=== PATIENT | female | born 1990 | race African-American/Black ===

== ENCOUNTER 2018-01-30 00:14 | Inpatient (IN) | payer MEDICAID, OTHER ==
[2018-01-30] MEDS ORDERED: Lidocaine 1% 50 ML MDV INJECT PRN (00:26)
[2018-01-30] MEDS ORDERED: Sodium Chloride 0.9% 2.5 ML Syringe FLUSH PRN (00:26)
[2018-01-30] MEDS ORDERED: Water For Irrigation,Sterile 1,000 ML Container IRR PRN (00:26)
[2018-01-30] MEDS ORDERED: Methylergonovine 0.2 MG/1 ML Amp IM PRN (00:26)
[2018-01-30] MEDS ORDERED: Misoprostol 200 MCG Tab PO PRN (00:26)
[2018-01-30] MEDS ORDERED: Nalbuphine 10 MG/1 ML Vial IVPUSH PRN (00:26)
[2018-01-30] MEDS ORDERED: Carboprost Tromethamine 250 MCG/1 ML Amp IM PRN (00:26)
[2018-01-30] MEDS ORDERED: Sodium Chloride 0.9% 10 ML Syringe FLUSH PRN (00:26)
[2018-01-30] MEDS ORDERED: Misoprostol 25 MCG (1/4 of 100 MCG) Tab VAG PRN (00:26)
[2018-01-30] MEDS ORDERED: Terbutaline 1 MG/ML SDV SUBCUT PRN (00:26)
[2018-01-30] MEDS ORDERED: Tranexamic Acid 1,000 MG in Sodium Chloride 0.9% 100 ML IV PRN (00:26)
[2018-01-30] MEDS ORDERED: Lactated Ringers 1,000 ML IV SCH (00:30)
[2018-01-30] MEDS ORDERED: Ampicillin 2 GM in Sodium Chloride 0.9% 100 ML IV ONE (00:30)
[2018-01-30] MEDS ORDERED: Misoprostol 25 MCG (1/4 of 100 MCG) Tab VAG SCH (00:30)
[2018-01-30] MEDS ORDERED: Oxytocin/0.9 % Sodium Chloride 30 UNIT/500 ML BAG IV SCH ×2 (00:30)
[2018-01-30] MEDS: Misoprostol 25 MCG (1/4 of 100 MCG) Tab PO SCH ×2 (01:17→14:04)
[2018-01-30] MEDS ORDERED: NIFEdipine 10 MG Cap PO ONE (01:41)
[2018-01-30] MEDS ORDERED: NIFEdipine 10 MG Cap PO PRN (05:15)
[2018-01-30] MEDS: Ampicillin 1 GM in Sodium Chloride 0.9% 50 ML IV SCH ×3 (05:22→14:05)
--- NOTE | 2018-01-30 07:45 | PCM.LDHP ---
L&D History of Present Illness - General Date of Service: 01/30/18 Admit Problem/Dx: Patient Status Order with Admit Dx/Problem 01/30/18 00:26 Patient Status [ADT] Routine Admission Diagnosis/Problem Admission Diagnosis/Problem 01/30/18 07:41 27yo EDC 02/02/2018 39 4/7wks, IOL for GDMA1, A+, RI, GBS pos. 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: , Spontaneous Social & Family History - Family History OBGYN: Reports: Oncologic: Reports: Brain - Tobacco Use Smoking Status *Q: Never Smoker - Caffeine Use Caffeine Use: Reports: Coffee - Recreational Drug Use Recreational Drug Use: No H&P Review of Systems - Review of Systems: Review Of Systems: See Below General: Reports: No Symptoms HEENT: Reports: No Symptoms Pulmonary: Reports: No Symptoms Cardiovascular: Reports: No Symptoms Gastrointestinal: Reports: No Symptoms Genitourinary: Reports: No Symptoms Musculoskeletal: Reports: No Symptoms Skin: Reports: No Symptoms Psychiatric: Reports: No Symptoms Neurological: Reports: No Symptoms Hematologic/Lymphatic: Reports: No Symptoms Immunologic: Reports: No Symptoms L&D Exam - Exam Exam: See Below - Vital Signs Vital Signs: Last Vital Signs Temp Pulse Resp BP 158/91 H 01/30/18 06:24 Pulse Ox Weight: 96.615 kg - Ballard Score Ballard Score Cervix Position: Midposition Ballard Score Consistency: Medium Ballard Score Effacement: 51-70% Ballard Score Dilation: 1-2 cm Ballard Score 's Station: -3 Ballard Score Total: 5 - Exam General: Alert, Oriented, Cooperative, Mild Distress HEENT: Hearing Intact Lungs: Normal Respiratory Effort GI/Abdominal Exam: Soft, Non-Tender (gravid) Rectal Exam: Deferred Genitourinary: Cervical dilitation Back Exam: Full Range of Motion Extremities: Normal Range of Motion, Non-Tender, No Pedal Edema, Normal Capillary Refill Skin: Warm, Dry, Intact Neurological: Reflexes Equal Bilateral, Normal Speech, Normal Tone Psychiatric: Alert, Normal Affect, Normal Mood - Patient Data Lab Results Last 24 hrs: Laboratory Results - last 24 hr 01/30/18 01/30/18 Range/Units 00:50 00:50 WBC 10.07 (4.0-11.0) K/uL RBC 3.31 L (4.30-5.90) M/uL Hgb 10.9 L (12.0-16.0) g/dL Hct 32.8 L (36.0-46.0) % MCV 99.1 H (80.0-98.0) fL MCH 32.9 H (27.0-32.0) pg MCHC 33.2 (31.0-37.0) g/dL RDW Std Deviation 44.7 (28.0-62.0) fl RDW Coeff of Rossana 13 (11.0-15.0) % Plt Count 214 (150-400) K/uL MPV 10.20 (7.40-12.00) fL Blood Type A POSITIVE Antibody Screen NEGATIVE Result Diagrams: 01/30/18 00:50 - Problem List (1) Supervision of normal IUP (intrauterine ) in multigravida SNOMED Code(s): 364922295, 627043340 ICD Code: Z34.80 - ENCOUNTER FOR SUPRVSN OF NORMAL , UNSP TRIMESTER Status: Acute Priority: High Current Visit: Yes Qualifiers: Trimester: third trimester Qualified Code(s): Z34.83 - Encounter for supervision of other normal , third trimester (2) GDM (gestational diabetes mellitus), class A1 SNOMED Code(s): 27199521 ICD Code: O24.410 - GESTATIONAL DIABETES MELLITUS IN , DIET CONTROLLED Status: Acute Priority: High Current Visit: Yes Problem List Initiated/Reviewed/Updated: Yes Orders Last 24hrs: Active Orders 24 hr Category Date Time Status Patient Status [ADT] Routine ADT 01/30/18 00:26 Active Bedrest Bathroom Privileges [RC] ASDIRECTED Care 01/30/18 00:26 Active Communication Order [RC] ASDIRECTED Care 01/30/18 00:26 Active Communication Order [RC] ASDIRECTED Care 01/30/18 00:26 Active Communication Order [RC] ASDIRECTED Care 01/30/18 00:26 Active Heart Tones [RC] CONTINUOUS Care 01/30/18 00:26 Active Non Stress Test [RC] PER UNIT ROUTINE Care 01/30/18 00:26 Active May Shower [RC] ASDIRECTED Care 01/30/18 00:26 Active Notify Provider [RC] PRN Care 01/30/18 00:26 Active Notify Provider [RC] PRN Care 01/30/18 00:26 Active Notify Provider [RC] PRN Care 01/30/18 00:26 Active Notify Provider [RC] STAT Care 01/30/18 00:26 Active Oxygen Therapy [RC] ASDIRECTED Care 01/30/18 00:26 Active Up ad Alyson [RC] ASDIRECTED Care 01/30/18 00:26 Active Vaginal Exam [RC] PRN Care 01/30/18 00:26 Active Vaginal Exam [RC] PRN Care 01/30/18 00:26 Active Vital Signs [RC] PER UNIT ROUTINE Care 01/30/18 00:26 Active Vital Signs [RC] PER UNIT ROUTINE Care 01/30/18 00:26 Active Regular Diet [DIET] Diet 01/30/18 Breakfast Active Ampicillin 1 gm Med 01/30/18 04:30 Active Sodium Chloride 0.9% [Normal Saline] 50 ml IV Q4H Carboprost Tromethamine [Hemabate DS] Med 01/30/18 00:26 Active 250 mcg IM ASDIRECTED PRN Lactated Ringers [Ringers, Lactated] 1,000 ml Med 01/30/18 00:30 Active IV ASDIRECTED Lidocaine 1% [Xylocaine 1%] Med 01/30/18 00:26 Active 50 ml INJECT .ONCE PRN Methylergonovine [Methergine] Med 01/30/18 00:26 Active 0.2 mg IM ASDIRECTED PRN Misoprostol [Cytotec] Med 01/30/18 00:26 Active 200 mcg PO .ONCE PRN Misoprostol [Cytotec] Med 01/30/18 00:30 Active 25 mcg PO Q4H Misoprostol [Cytotec] Med 01/30/18 00:30 Active 25 mcg VAG .ONCE Misoprostol [Cytotec] Med 01/30/18 00:26 Active 25 mcg VAG Q4H PRN NIFEdipine [Procardia] Med 01/30/18 05:15 Active 30 mg PO BID PRN Nalbuphine [Nubain] Med 01/30/18 00:26 Active 10 mg IVPUSH Q1H PRN Oxytocin/0.9 % Sodium Chloride [Oxytocin 30 Unit/500 ML Med 01/30/18 00:30 Active -NS] 30 unit in 500 ml IV TITRATE Sodium Chloride 0.9% [Saline Flush] Med 01/30/18 00:26 Active 10 ml FLUSH ASDIRECTED PRN Sodium Chloride 0.9% [Saline Flush] Med 01/30/18 00:26 Active 2.5 ml FLUSH ASDIRECTED PRN Terbutaline [Brethine] Med 01/30/18 00:26 Active 0.25 mg SUBCUT ASDIRECTED PRN Tranexamic Acid [Cyklokapron] 1,000 mg Med 01/30/18 00:26 Active Sodium Chloride 0.9% [Normal Saline] 100 ml IV ONETIME Water For Irrigation,Sterile [Sterile Water for Med 01/30/18 00:26 Active Irrigation] 1,000 ml IRR ASDIRECTED PRN Scalp Electrode [WOMSER] Per Unit Routine Oth 01/30/18 00:26 Ordered Medication Administration Instruction [OM.PC] Q3H Oth 01/30/18 00:30 Ordered Peripheral IV Insertion Adult [OM.PC] Routine Oth 01/30/18 00:26 Ordered Resuscitation Status Routine Resus Stat 01/30/18 00:26 Ordered Medication Orders Carboprost Tromethamine (Hemabate Ds) 250 mcg IM ASDIRECTED PRN PRN Reason: Post Hemorrhage Lactated Ringer's (Ringers, Lactated) 1,000 mls @ 150 mls/hr IV ASDIRECTED BLADE Last Admin: 01/30/18 01:18 Dose: 150 mls/hr Oxytocin/Sodium Chloride (Oxytocin 30 Unit/500 Ml-Ns) 30 unit in 500 mls @ 2 mls/hr IV TITRATE BLADE; 2 MUNITS/MIN PRN Reason: Protocol Tranexamic Acid 1,000 mg/ (Sodium Chloride) 110 mls @ 660 mls/hr IV ONETIME PRN PRN Reason: Bleeding Ampicillin Sodium 1 gm/ Sodium (Chloride) 50 mls @ 100 mls/hr IV Q4H [facility] Last Admin: 01/30/18 05:22 Dose: 100 mls/hr Lidocaine HCl (Xylocaine 1%) 50 ml INJECT .ONCE PRN PRN Reason: Laceration repair Methylergonovine Maleate (Methergine) 0.2 mg IM ASDIRECTED PRN PRN Reason: Post Hemorrhage Misoprostol (Cytotec) 200 mcg PO .ONCE PRN PRN Reason: Post Hemorrhage Misoprostol (Cytotec) 25 mcg VAG .ONCE BLADE Last Admin: 01/30/18 01:16 Dose: 25 mcg Misoprostol (Cytotec) 25 mcg VAG Q4H PRN PRN Reason: Cervical Ripening Misoprostol (Cytotec) 25 mcg PO Q4H BLADE Last Admin: 01/30/18 01:17 Dose: 25 mcg Nalbuphine HCl (Nubain) 10 mg IVPUSH Q1H PRN PRN Reason: Pain (severe 7-10) Nifedipine (Procardia) 30 mg PO BID PRN PRN Reason: BP greater than 150/90 Last Admin: 01/30/18 06:24 Dose: 30 mg Sodium Chloride (Saline Flush) 10 ml FLUSH ASDIRECTED PRN PRN Reason: Keep Vein Open Sodium Chloride (Saline Flush) 2.5 ml FLUSH ASDIRECTED PRN PRN Reason: Keep Vein Open Sterile Water (Sterile Water For Irrigation) 1,000 ml IRR ASDIRECTED PRN PRN Reason: delivery Terbutaline Sulfate (Brethine) 0.25 mg SUBCUT ASDIRECTED PRN PRN Reason: Tacysystole Assessment/Plan Comment:: IOL A: 27yo EDC 02/02/2018 39 4/7wks, IOL for GDMA1, A+, RI, GBS pos. P: Admit, cytotec to pitocin IOL, Amp for GBS pos, anticipate . Dr Radford updated on pt status
[2018-01-30] MEDS ORDERED: Witch Hazel Medicated Pads 40/Jar TOP PRN (13:02)
[2018-01-30] MEDS ORDERED: Docusate Sodium 100 MG Cap PO PRN (13:02)
[2018-01-30] MEDS ORDERED: oxyCODONE 5 MG Tab PO PRN (13:02)
[2018-01-30] MEDS ORDERED: Acetaminophen 500 MG Tab PO PRN (13:02)
[2018-01-30] MEDS ORDERED: Bisacodyl 10 MG Supp RECTAL PRN (13:02)
[2018-01-30] MEDS ORDERED: Lanolin 100% Cream 7 GM Tube TOP PRN (13:02)
[2018-01-30] MEDS ORDERED: Ibuprofen 400 MG Tab PO PRN (13:02)
[2018-01-30] MEDS ORDERED: Benzocaine/Menthol 20%-0.5% Spray 78 GM Cannister TOP PRN (13:02)
[2018-01-30] MEDS ORDERED: NIFEdipine 30 MG Tab.ER PO ONE (14:03)
--- NOTE | 2018-01-30 14:06 | PCM.DEL ---
L & D Note - General Info Date of Service: 01/30/18 Mother's Due Date: 02/02/18 - Delivery Note Labor: Spontaneous Delivery Outcome: Livebirth Infant Delivery Method: Spontaneous Vaginal Delivery-Single Presentation: Vertex Nuchal Cord: Present (1) Anesthesia Type: Epidural Amniotic Fluid Description: Clear Episiotomy Type: None Laceration: None Placenta: Intact, Spontaneous Cord: 3 Vessels Resuscitation Needed: No : Stimulated, Warmed, [place] Used, Warmer Used Score 1 min: 9 Score 5 min: 10 - General Info Date of Service: 01/30/18 Admission Dx/Problem (Free Text): Patient Status Order with Admit Dx/Problem 01/30/18 00:26 Patient Status [ADT] Routine Admission Diagnosis/Problem Admission Diagnosis/Problem 01/30/18 07:41 27yo EDC 02/02/2018 39 4/7wks, IOL for GDMA1, A+, RI, GBS pos. Subjective Update: 27-year-old female that is now a following delivery of a term male via normal spontaneous vaginal delivery. Mother was GBS positive and treated with appropriate IV antibiotics. She was rubella immune. Mother's blood type was A+. [place] weighed 7 lbs. 15 oz. scores were 9 and 10 at one and 5 minutes respectively. Mother did receive an epidural. No complications noted during delivery. Infant was placed on the mother's chest and warmed and stimulated and did well status post delivery. Functional Status: Reports: Pain Controlled - Review of Systems General: Reports: No Symptoms Pulmonary: Reports: No Symptoms Cardiovascular: Reports: No Symptoms Musculoskeletal: Reports: No Symptoms Skin: Reports: No Symptoms Neurological: Reports: No Symptoms Psychiatric: Reports: No Symptoms - Patient Data Vitals - Most Recent: Last Vital Signs Temp Pulse Resp BP 158/91 H 01/30/18 06:24 Pulse Ox Weight - Most Recent: 213 lb Lab Results Last 24 Hours: Laboratory Results - last 24 hr 01/30/18 01/30/18 01/30/18 Range/Units 00:50 00:50 10:31 WBC 10.07 (4.0-11.0) K/uL RBC 3.31 L (4.30-5.90) M/uL Hgb 10.9 L (12.0-16.0) g/dL Hct 32.8 L (36.0-46.0) % MCV 99.1 H (80.0-98.0) fL MCH 32.9 H (27.0-32.0) pg MCHC 33.2 (31.0-37.0) g/dL RDW Std Deviation 44.7 (28.0-62.0) fl RDW Coeff of Rossana 13 (11.0-15.0) % Plt Count 214 (150-400) K/uL MPV 10.20 (7.40-12.00) fL POC Glucose 75 (60-110) mg/dL Blood Type A POSITIVE Antibody Screen NEGATIVE Med Orders - Current: Current Medications Acetaminophen (Tylenol Extra Strength) 500 mg PO Q4H PRN PRN Reason: Pain Acetaminophen (Tylenol Extra Strength) 1,000 mg PO Q4H PRN PRN Reason: Pain Benzocaine/Menthol (Dermoplast Pain Relief 20%-0.5% [place]) 78 gm TOP ASDIRECTED PRN PRN Reason: Perineal Comfort Measure Bisacodyl (Dulcolax) 10 mg RECTAL .ONCE PRN PRN Reason: Constipation Docusate Sodium (Colace) 100 mg PO BID PRN PRN Reason: Constipation Emollient Ointment (Lansinoh Hpa) 0 gm TOP ASDIRECTED PRN PRN Reason: Sore Nipples Ibuprofen (Motrin) 400 mg PO Q4H PRN PRN Reason: Pain Ibuprofen (Motrin) 800 mg PO Q6H PRN PRN Reason: Pain Oxycodone HCl (Oxycodone) 5 mg PO Q2H PRN PRN Reason: Pain Witch Feli (Tucks) 1 pad TOP ASDIRECTED PRN PRN Reason: comfort care Discontinued Medications Carboprost Tromethamine (Hemabate Ds) 250 mcg IM ASDIRECTED PRN PRN Reason: Post Hemorrhage Ampicillin Sodium 2 gm/ Sodium (Chloride) 100 mls @ 200 mls/hr IV ONETIME ONE Stop: 01/30/18 00:59 Last Admin: 01/30/18 01:18 Dose: 200 mls/hr Lactated Ringer's (Ringers, Lactated) 1,000 mls @ 150 mls/hr IV ASDIRECTED BLADE Last Admin: 01/30/18 01:18 Dose: 150 mls/hr Oxytocin/Sodium Chloride (Oxytocin 30 Unit/500 Ml-Ns) 30 unit in 500 mls @ 2 mls/hr IV TITRATE BLADE; 2 MUNITS/MIN PRN Reason: Protocol Last Admin: 01/30/18 12:54 Dose: 999 mls/hr Tranexamic Acid 1,000 mg/ (Sodium Chloride) 110 mls @ 660 mls/hr IV ONETIME PRN PRN Reason: Bleeding Ampicillin Sodium 1 gm/ Sodium (Chloride) 50 mls @ 100 mls/hr IV Q4H [facility] Last Admin: 01/30/18 09:45 Dose: 100 mls/hr Lidocaine HCl (Xylocaine 1%) 50 ml INJECT .ONCE PRN PRN Reason: Laceration repair Methylergonovine Maleate (Methergine) 0.2 mg IM ASDIRECTED PRN PRN Reason: Post Hemorrhage Misoprostol (Cytotec) 200 mcg PO .ONCE PRN PRN Reason: Post Hemorrhage Misoprostol (Cytotec) 25 mcg VAG .ONCE [facility] Last Admin: 01/30/18 01:16 Dose: 25 mcg Misoprostol (Cytotec) 25 mcg VAG Q4H PRN PRN Reason: Cervical Ripening Misoprostol (Cytotec) 25 mcg PO Q4H [facility] Last Admin: 01/30/18 01:17 Dose: 25 mcg Nalbuphine HCl (Nubain) 10 mg IVPUSH Q1H PRN PRN Reason: Pain (severe 7-10) Last Admin: 01/30/18 10:55 Dose: 10 mg Nifedipine (Procardia) 30 mg PO BID ONE Stop: 01/30/18 01:42 Nifedipine (Procardia) 30 mg PO BID PRN PRN Reason: BP greater than 150/90 Last Admin: 01/30/18 06:24 Dose: 30 mg Sodium Chloride (Saline Flush) 10 ml FLUSH ASDIRECTED PRN PRN Reason: Keep Vein Open Sodium Chloride (Saline Flush) 2.5 ml FLUSH ASDIRECTED PRN PRN Reason: Keep Vein Open Sterile Water (Sterile Water For Irrigation) 1,000 ml IRR ASDIRECTED PRN PRN Reason: delivery Terbutaline Sulfate (Brethine) 0.25 mg SUBCUT ASDIRECTED PRN PRN Reason: Tacysystole - Exam General: Alert, Oriented, Cooperative, No Acute Distress Lungs: Clear to Auscultation, Normal Respiratory Effort Cardiovascular: Regular Rate, Regular Rhythm (Female) Exam: Normal External Exam, Normal Bimanual Exam Extremities: Normal Inspection, Normal Range of Motion, No Pedal Edema Skin: Warm, Dry, Intact Neurological: No New Focal Deficit Psy/Mental Status: Alert, Normal Affect, Normal Mood - Problem List & Annotations (1) (normal spontaneous vaginal delivery) SNOMED Code(s): 33250387 Code(s): O80 - ENCOUNTER FOR FULL-TERM UNCOMPLICATED DELIVERY Status: Acute Priority: High Current Visit: Yes (2) Positive GBS test SNOMED Code(s): 2899124431132 Code(s): B95.1 - STREPTOCOCCUS, GROUP B, CAUSING DISEASES CLASSD ELSWHR Status: Acute Priority: High Current Visit: Yes - Problem List Review Problem List Initiated/Reviewed/Updated: Yes - Plan Plan:: IOL A: 27yo EDC 02/02/2018 39 4/7wks, IOL for GDMA1, A+, RI, GBS pos. P: Admit, cytotec to pitocin IOL, Amp for GBS pos, anticipate . Dr Radford updated on pt status : Assessment: 27-year-old female that is now with an estimated date of conception of [birth year] 02, 2018. Patient gave to a viable male infant at term. Mother was GBS positive and treated with appropriate IV antibiotics. She was rubella immune. Blood type is a positive. Following delivery, the was placed on the mother's chest and did well following delivery with scores of 9 and 10 at one and 5 minutes respectively. Mother was left bonding with the infant. Plan: Routine care.
[2018-01-30] MEDS: Ibuprofen 800 MG Tab PO PRN (14:16)
[2018-01-31] MEDS: Acetaminophen 500 MG Tab PO PRN ×2 (04:34→13:13)
[2018-01-31] MEDS ORDERED: NIFEdipine 30 MG Tab.ER PO SCH (07:56)
--- NOTE | 2018-01-31 08:02 | PCM.DCSUM1 ---
Discharge Summary - Hospital Course Free Text/Narrative:: Discharge home with infant. Follow up in 1 weeks for blood pressure check and then in 6 weeks for post exam. Come sooner if needed. - Discharge Data Discharge Date: 01/31/18 Discharge Disposition: Home, Self-Care 01 Condition: Good - Discharge Diagnosis/Problem(s) (1) Supervision of normal IUP (intrauterine ) in multigravida SNOMED Code(s): 304307156, 314532346 ICD Code: Z34.80 - ENCOUNTER FOR SUPRVSN OF NORMAL , UNSP TRIMESTER Status: Acute Priority: High Current Visit: Yes Qualifiers: Trimester: third trimester Qualified Code(s): Z34.83 - Encounter for supervision of other normal , third trimester (2) GDM (gestational diabetes mellitus), class A1 SNOMED Code(s): 48985620 ICD Code: O24.410 - GESTATIONAL DIABETES MELLITUS IN , DIET CONTROLLED Status: Acute Priority: High Current Visit: Yes - Patient Instructions Diet: Usual Diet as Tolerated Activity: As Tolerated, No Strenuous Activities, Rest and Relax Today Driving: May Drive Today Showering/Bathing: May Shower Notify Provider of: Fever, Increased Pain, Swelling and Redness, Nausea and/or Vomiting Other/Special Instructions: Discharge home with infant. Follow up in 1 weeks for blood pressure check and then in 6 weeks for post exam. Come sooner if needed. - Discharge Plan Prescriptions/Med Rec: niCARdipine [Cardene] 30 mg PO BID #60 cap Home Medications: Home Meds Ibuprofen [IJD: Ibuprofen] 800 mg PO Q6H PRN tablet 01/31/18 [Rx] niCARdipine [Cardene] 30 mg PO BID #60 cap 01/31/18 [Rx] Referrals: [facility] [Outside] Tammy Howard CNM [Mid-] - 03/10/18 8:30 am - General Info Date of Service: 01/31/18 Admission Dx/Problem (Free Text: Patient Status Order with Admit Dx/Problem 01/30/18 00:26 Patient Status [ADT] Routine Admission Diagnosis/Problem Admission Diagnosis/Problem 01/30/18 07:41 27yo EDC 02/02/2018 39 4/7wks, IOL for GDMA1, A+, RI, GBS pos. Subjective Update: 27-year-old female that is now a following delivery of a term male via normal spontaneous vaginal delivery. Mother was GBS positive and treated with appropriate IV antibiotics. She was rubella immune. Mother's blood type was A+. [place] infant weighed 7 lbs. 15 oz. scores were 9 and 10 at one and 5 minutes respectively. Mother did receive an epidural. No complications noted during delivery. Infant was placed on the mother's chest and warmed and stimulated and did well status post delivery. Functional Status: Reports: Pain Controlled, Tolerating Diet, Ambulating, Urinating - Review of Systems General: Reports: No Symptoms HEENT: Reports: No Symptoms Pulmonary: Reports: No Symptoms Cardiovascular: Reports: No Symptoms Gastrointestinal: Reports: No Symptoms Genitourinary: Reports: No Symptoms Musculoskeletal: Reports: No Symptoms Skin: Reports: No Symptoms Neurological: Reports: No Symptoms Psychiatric: Reports: No Symptoms - Patient Data Vitals - Most Recent: Last Vital Signs Temp 36.9 C 01/31/18 07:44 Pulse 128 H 01/31/18 07:44 Resp 20 01/31/18 07:44 BP 134/89 01/31/18 07:44 Pulse Ox 97 01/31/18 07:44 Weight - Most Recent: 96.615 kg Lab Results - Last 24 hrs: Laboratory Results - last 24 hr 01/30/18 Range/Units 10:31 POC Glucose 75 (60-110) mg/dL Med Orders - Current: Current Medications Acetaminophen (Tylenol Extra Strength) 500 mg PO Q4H PRN PRN Reason: Pain Acetaminophen (Tylenol Extra Strength) 1,000 mg PO Q4H PRN PRN Reason: Pain Last Admin: 01/31/18 04:34 Dose: 1,000 mg Benzocaine/Menthol (Dermoplast Pain Relief 20%-0.5% [place]) 78 gm TOP ASDIRECTED PRN PRN Reason: Perineal Comfort Measure Bisacodyl (Dulcolax) 10 mg RECTAL .ONCE PRN PRN Reason: Constipation Docusate Sodium (Colace) 100 mg PO BID PRN PRN Reason: Constipation Emollient Ointment (Lansinoh Hpa) 0 gm TOP ASDIRECTED PRN PRN Reason: Sore Nipples Ibuprofen (Motrin) 400 mg PO Q4H PRN PRN Reason: Pain Ibuprofen (Motrin) 800 mg PO Q6H PRN PRN Reason: Pain Last Admin: 01/30/18 14:16 Dose: 800 mg Nifedipine (Procardia Xl) 30 mg PO DAILY [facility] Oxycodone HCl (Oxycodone) 5 mg PO Q2H PRN PRN Reason: Pain Witch Feli (Tucks) 1 pad TOP ASDIRECTED PRN PRN Reason: comfort care Discontinued Medications Carboprost Tromethamine (Hemabate Ds) 250 mcg IM ASDIRECTED PRN PRN Reason: Post Hemorrhage Ampicillin Sodium 2 gm/ Sodium (Chloride) 100 mls @ 200 mls/hr IV ONETIME ONE Stop: 01/30/18 00:59 Last Admin: 01/30/18 01:18 Dose: 200 mls/hr Lactated Ringer's (Ringers, Lactated) 1,000 mls @ 150 mls/hr IV ASDIRECTED [facility] Last Admin: 01/30/18 01:18 Dose: 150 mls/hr Oxytocin/Sodium Chloride (Oxytocin 30 Unit/500 Ml-Ns) 30 unit in 500 mls @ 2 mls/hr IV TITRATE BLADE; 2 MUNITS/MIN PRN Reason: Protocol Last Admin: 01/30/18 12:54 Dose: 999 mls/hr Tranexamic Acid 1,000 mg/ (Sodium Chloride) 110 mls @ 660 mls/hr IV ONETIME PRN PRN Reason: Bleeding Ampicillin Sodium 1 gm/ Sodium (Chloride) 50 mls @ 100 mls/hr IV Q4H [facility] Last Admin: 01/30/18 14:05 Dose: Not Given Lidocaine HCl (Xylocaine 1%) 50 ml INJECT .ONCE PRN PRN Reason: Laceration repair Methylergonovine Maleate (Methergine) 0.2 mg IM ASDIRECTED PRN PRN Reason: Post Hemorrhage Misoprostol (Cytotec) 200 mcg PO .ONCE PRN PRN Reason: Post Hemorrhage Misoprostol (Cytotec) 25 mcg VAG .ONCE [facility] Last Admin: 01/30/18 01:16 Dose: 25 mcg Misoprostol (Cytotec) 25 mcg VAG Q4H PRN PRN Reason: Cervical Ripening Misoprostol (Cytotec) 25 mcg PO Q4H [facility] Last Admin: 03/01/18 14:04 Dose: Not Given Nalbuphine HCl (Nubain) 10 mg IVPUSH Q1H PRN PRN Reason: Pain (severe 7-10) Last Admin: 01/30/18 10:55 Dose: 10 mg Nifedipine (Procardia) 30 mg PO BID ONE Stop: 01/30/18 01:42 Last Admin: 01/31/18 06:13 Dose: Not Given Nifedipine (Procardia) 30 mg PO BID PRN PRN Reason: BP greater than 150/90 Last Admin: 01/30/18 06:24 Dose: 30 mg Nifedipine (Procardia Xl) 30 mg PO ONETIME ONE Stop: 01/30/18 14:04 Last Admin: 01/30/18 14:16 Dose: 30 mg Sodium Chloride (Saline Flush) 10 ml FLUSH ASDIRECTED PRN PRN Reason: Keep Vein Open Sodium Chloride (Saline Flush) 2.5 ml FLUSH ASDIRECTED PRN PRN Reason: Keep Vein Open Sterile Water (Sterile Water For Irrigation) 1,000 ml IRR ASDIRECTED PRN PRN Reason: delivery Terbutaline Sulfate (Brethine) 0.25 mg SUBCUT ASDIRECTED PRN PRN Reason: Tacysystole - Exam General: Reports: Alert, Oriented, Cooperative, No Acute Distress Lungs: Reports: Normal Respiratory Effort GI/Abdominal Exam: Soft, Non-Tender (Female) Exam: Vaginal Bleeding Rectal (Female) Exam: Deferred Back Exam: Reports: Full Range of Motion Extremities: Normal Range of Motion, Non-Tender, No Pedal Edema, Normal Capillary Refill Skin: Reports: Warm, Dry, Intact Wound/Incisions: Reports: Healing Well Neurological: Reports: No New Focal Deficit, Normal Gait, Normal Speech, Normal Tone Psy/Mental Status: Reports: Alert, Normal Affect, Normal Mood *Q Meaningful Use (DIS) - VTE *Q VTE Criteria *Q: - Stroke *Q Stroke Criteria *Q: - AMI *Q AMI Criteria *Q:
[2018-01-31] MEDS ORDERED: Furosemide 20 MG Tab PO ONE (13:21)
[2018-01-31] MEDS: Ibuprofen 800 MG Tab PO PRN (20:09)
[2018-01-31] MEDS: NIFEdipine 30 MG Tab.ER PO SCH (20:43)
--- NOTE | 2018-02-01 08:41 | PCM.DCSUM1 ---
Discharge Summary - Hospital Course Free Text/Narrative:: Discharge home with infant, Follow up in 1 week for BP check. - Discharge Data Discharge Date: 02/01/18 Discharge Disposition: Home, Self-Care 01 Condition: Good - Discharge Diagnosis/Problem(s) (1) Supervision of normal IUP (intrauterine ) in multigravida SNOMED Code(s): 307445874, 670891036 ICD Code: Z34.80 - ENCOUNTER FOR SUPRVSN OF NORMAL , UNSP TRIMESTER Status: Acute Priority: High Current Visit: Yes Qualifiers: Trimester: third trimester Qualified Code(s): Z34.83 - Encounter for supervision of other normal , third trimester (2) GDM (gestational diabetes mellitus), class A1 SNOMED Code(s): 89980370 ICD Code: O24.410 - GESTATIONAL DIABETES MELLITUS IN , DIET CONTROLLED Status: Acute Priority: High Current Visit: Yes - Patient Instructions Diet: Usual Diet as Tolerated Activity: As Tolerated, No Strenuous Activities, Rest and Relax Today Driving: May Drive Today Showering/Bathing: May Shower Notify Provider of: Fever, Increased Pain, Swelling and Redness, Nausea and/or Vomiting Other/Special Instructions: Discharge home with infant. Follow up in 1 weeks for blood pressure check and then in 6 weeks for post exam. Come sooner if needed. - Discharge Plan Prescriptions/Med Rec: niCARdipine [Cardene] 30 mg PO BID #60 cap Home Medications: Home Meds Ibuprofen [IJD: Ibuprofen] 800 mg PO Q6H PRN tablet 01/31/18 [Rx] niCARdipine [Cardene] 30 mg PO BID #60 cap 01/31/18 [Rx] Referrals: [facility] [Outside] Tammy Howard CNM [Mid-] - 03/10/18 8:30 am (1 week Blood Pressure check : February 12 at 8:30 am) - General Info Date of Service: 02/01/18 Admission Dx/Problem (Free Text: Patient Status Order with Admit Dx/Problem 01/30/18 00:26 Patient Status [ADT] Routine Admission Diagnosis/Problem Admission Diagnosis/Problem 01/30/18 07:41 27yo EDC 02/02/2018 39 4/7wks, IOL for GDMA1, A+, RI, GBS pos. Functional Status: Reports: Pain Controlled, Tolerating Diet, Ambulating, Urinating - Review of Systems General: Reports: No Symptoms HEENT: Reports: No Symptoms Pulmonary: Reports: No Symptoms Cardiovascular: Reports: No Symptoms Gastrointestinal: Reports: No Symptoms Genitourinary: Reports: No Symptoms Musculoskeletal: Reports: No Symptoms Skin: Reports: No Symptoms Neurological: Reports: No Symptoms Psychiatric: Reports: No Symptoms - Patient Data Vitals - Most Recent: Last Vital Signs Temp 36.8 C 02/01/18 07:41 Pulse 93 02/01/18 07:41 Resp 16 02/01/18 07:41 BP 120/78 02/01/18 07:41 Pulse Ox 93 L 02/01/18 07:41 Weight - Most Recent: 96.615 kg Lab Results - Last 24 hrs: Laboratory Results - last 24 hr 01/31/18 01/31/18 Range/Units 13:45 13:46 WBC 14.28 H (4.0-11.0) K/uL RBC 3.02 L (4.30-5.90) M/uL Hgb 9.9 L (12.0-16.0) g/dL Hct 29.6 L (36.0-46.0) % MCV 98.0 (80.0-98.0) fL MCH 32.8 H (27.0-32.0) pg MCHC 33.4 (31.0-37.0) g/dL RDW Std Deviation 49.4 (28.0-62.0) fl RDW Coeff of [place] 14 (11.0-15.0) % Plt Count 228 (150-400) K/uL MPV 9.90 (7.40-12.00) fL Neut % (Auto) 70.1 (48.0-80.0) % Lymph % (Auto) 23.2 (16.0-40.0) % [place] % (Auto) 5.7 (0.0-15.0) % Eos % (Auto) 0.9 (0.0-7.0) % Baso % (Auto) 0.1 (0.0-1.5) % Neut # (Auto) 10.0 H (1.4-5.7) K/uL Lymph # (Auto) 3.3 H (0.6-2.4) K/uL [place] # (Auto) 0.8 (0.0-0.8) K/uL Eos # (Auto) 0.1 (0.0-0.7) K/uL Baso # (Auto) 0.0 (0.0-0.1) K/uL Nucleated RBC % 0.2 /100WBC Nucleated RBCs # 0 K/uL POC Glucose 112 H (60-110) mg/dL Med Orders - Current: Current Medications Acetaminophen (Tylenol Extra Strength) 500 mg PO Q4H PRN PRN Reason: Pain Last Admin: 02/01/18 04:59 Dose: 500 mg Acetaminophen (Tylenol Extra Strength) 1,000 mg PO Q4H PRN PRN Reason: Pain Last Admin: 01/31/18 13:13 Dose: 1,000 mg Benzocaine/Menthol (Dermoplast Pain Relief 20%-0.5% [place]) 78 gm TOP ASDIRECTED PRN PRN Reason: Perineal Comfort Measure Bisacodyl (Dulcolax) 10 mg RECTAL .ONCE PRN PRN Reason: Constipation Docusate Sodium (Colace) 100 mg PO BID PRN PRN Reason: Constipation Last Admin: 01/31/18 20:10 Dose: 100 mg Emollient Ointment (Lansinoh Hpa) 0 gm TOP ASDIRECTED PRN PRN Reason: Sore Nipples Last Admin: 01/31/18 20:10 Dose: 7 gm Ibuprofen (Motrin) 400 mg PO Q4H PRN PRN Reason: Pain Ibuprofen (Motrin) 800 mg PO Q6H PRN PRN Reason: Pain Last Admin: 01/31/18 20:09 Dose: 800 mg Nifedipine (Procardia Xl) 30 mg PO BID BLADE Last Admin: 01/31/18 20:43 Dose: 30 mg Oxycodone HCl (Oxycodone) 5 mg PO Q2H PRN PRN Reason: Pain Last Admin: 02/01/18 04:59 Dose: 5 mg Witch Feli (Tucks) 1 pad TOP ASDIRECTED PRN PRN Reason: comfort care Discontinued Medications Carboprost Tromethamine (Hemabate Ds) 250 mcg IM ASDIRECTED PRN PRN Reason: Post Hemorrhage Furosemide (Lasix) 20 mg PO ONETIME ONE Stop: 01/31/18 13:22 Last Admin: 01/31/18 13:52 Dose: 20 mg Ampicillin Sodium 2 gm/ Sodium (Chloride) 100 mls @ 200 mls/hr IV ONETIME ONE Stop: 01/30/18 00:59 Last Admin: 01/30/18 01:18 Dose: 200 mls/hr Lactated Ringer's (Ringers, Lactated) 1,000 mls @ 150 mls/hr IV ASDIRECTED [facility] Last Admin: 01/30/18 01:18 Dose: 150 mls/hr Oxytocin/Sodium Chloride (Oxytocin 30 Unit/500 Ml-Ns) 30 unit in 500 mls @ 2 mls/hr IV TITRATE BLADE; 2 MUNITS/MIN PRN Reason: Protocol Last Admin: 01/30/18 12:54 Dose: 999 mls/hr Tranexamic Acid 1,000 mg/ (Sodium Chloride) 110 mls @ 660 mls/hr IV ONETIME PRN PRN Reason: Bleeding Ampicillin Sodium 1 gm/ Sodium (Chloride) 50 mls @ 100 mls/hr IV Q4H [facility] Last Admin: 01/30/18 14:05 Dose: Not Given Lidocaine HCl (Xylocaine 1%) 50 ml INJECT .ONCE PRN PRN Reason: Laceration repair Methylergonovine Maleate (Methergine) 0.2 mg IM ASDIRECTED PRN PRN Reason: Post Hemorrhage Misoprostol (Cytotec) 200 mcg PO .ONCE PRN PRN Reason: Post Hemorrhage Misoprostol (Cytotec) 25 mcg VAG .ONCE [facility] Last Admin: 01/30/18 01:16 Dose: 25 mcg Misoprostol (Cytotec) 25 mcg VAG Q4H PRN PRN Reason: Cervical Ripening Misoprostol (Cytotec) 25 mcg PO Q4H [facility] Last Admin: 01/30/18 14:04 Dose: Not Given Nalbuphine HCl (Nubain) 10 mg IVPUSH Q1H PRN PRN Reason: Pain (severe 7-10) Last Admin: 01/30/18 10:55 Dose: 10 mg Nifedipine (Procardia) 30 mg PO BID ONE Stop: 01/30/18 01:42 Last Admin: 01/31/18 06:13 Dose: Not Given Nifedipine (Procardia) 30 mg PO BID PRN PRN Reason: BP greater than 150/90 Last Admin: 01/30/18 06:24 Dose: 30 mg Nifedipine (Procardia Xl) 30 mg PO ONETIME ONE Stop: 01/30/18 14:04 Last Admin: 01/30/18 14:16 Dose: 30 mg Nifedipine (Procardia Xl) 30 mg PO DAILY BLADE Last Admin: 01/31/18 10:05 Dose: 30 mg Sodium Chloride (Saline Flush) 10 ml FLUSH ASDIRECTED PRN PRN Reason: Keep Vein Open Sodium Chloride (Saline Flush) 2.5 ml FLUSH ASDIRECTED PRN PRN Reason: Keep Vein Open Sterile Water (Sterile Water For Irrigation) 1,000 ml IRR ASDIRECTED PRN PRN Reason: delivery Terbutaline Sulfate (Brethine) 0.25 mg SUBCUT ASDIRECTED PRN PRN Reason: Tacysystole - Exam General: Reports: Alert, Oriented, Cooperative, No Acute Distress Lungs: Reports: Clear to Auscultation, Normal Respiratory Effort Cardiovascular: Reports: Regular Rate, Regular Rhythm, No Murmurs GI/Abdominal Exam: Soft, Non-Tender (Female) Exam: Vaginal Bleeding Rectal (Female) Exam: Deferred Back Exam: Reports: Full Range of Motion Extremities: Normal Range of Motion, Non-Tender, No Pedal Edema, Normal Capillary Refill Skin: Reports: Warm, Dry, Intact Wound/Incisions: Reports: Healing Well Neurological: Reports: No New Focal Deficit, Normal Gait, Normal Speech, Normal Tone (denies headaches, blurred vision and epigastric pain) Psy/Mental Status: Reports: Alert, Normal Affect, Normal Mood *Q Meaningful Use (DIS) - VTE *Q VTE Criteria *Q: - Stroke *Q Stroke Criteria *Q: - AMI *Q AMI Criteria *Q:
[2018-02-01] MEDS: NIFEdipine 30 MG Tab.ER PO SCH (09:00)
== END 2018-02-01 11:40 | disposition home or self-care (01) | DRG 775 ==
LOC: MW.US 00:14 → MW.OB 00:14 → MW.US 00:26 → OBSVTOIN 12:53
PROVIDERS: ADMIT Obstetrics & Gynecology; ATTEND Obstetrics & Gynecology
PROC: 10E0XZZ Delivery of Products of Conception, External Approach (ICD-10-PCS; principal; 2018-01-30)
PROC: 3E0P7VZ Introduction of Hormone into Female Reproductive, Via Natural or Artificial Opening (ICD-10-PCS; 2018-01-30)
PROC: 3E033VJ Introduction of Other Hormone into Peripheral Vein, Percutaneous Approach (ICD-10-PCS; 2018-01-30)
DX: O24.420 Gestational diabetes mellitus in childbirth, diet controlled (principal); O69.1XX0 Labor and delivery complicated by cord around neck, with compression, not applicable or unspecified; O99.824 Streptococcus B carrier state complicating childbirth; Z3A.39 39 weeks gestation of pregnancy; Z37.0 Single live birth
CPT/HCPCS: 36415; 59025; 59409; 82962; 85025; 85027; 86850; 86900; 86901; A9270-GY; J0290; J2300; J2590; J7030; J7050; J7120